=== PATIENT | female | born 1950 | race African-American/Black ===

== ENCOUNTER 2020-05-07 01:21 | Emergency (ER) | payer OTHER ==
[2020-05-07 03:44] LABS: Basophils % (Auto) 0.6 % (0.0-1.8); Eosinophils # (Auto) 0.1 K/mm3 (0.0-0.4); Eosinophils % (Auto) 1.7 % (0.0-4.3); Hematocrit 41.9 % (30.3-42.9); Lymphocytes # (Auto) 1.7 K/mm3 (1.2-5.4); Lymphocytes % (Auto) 28.2 % (13.4-35.0); Mean Corpuscular HGB Conc 33 % (30-34); Mean Corpuscular Volume 91 fl (79-97); Monocytes # (Auto) 0.5 K/mm3 (0.0-0.8); Monocytes % (Auto) 7.8 % (0.0-7.3); Platelet Count 265 K/mm3 (140-440); Red Blood Count 4.63 M/mm3 (3.65-5.03)
[2020-05-07 04:19] LABS: Alanine Aminotransferase 35 units/L (7-56); Albumin 4.2 g/dL (3.9-5); BUN/Creatinine Ratio 17; Blood Urea Nitrogen 10 mg/dL (7-17); Calcium 9.3 mg/dL (8.4-10.2); Hemolysis Index 10
[2020-05-07 04:45] LABS: Bacteria,Urine 1+ /HPF (Negative); Bilirubin,Urine NEG (Negative); Blood,Urine MOD (Negative); Color,Urine Yellow (Yellow); Mucus,Urine FEW /HPF; Protein,Urine <15 mg/dL mg/dL (Negative); Urobilinogen,Urine < 2.0 mg/dL (<2.0)
--- NOTE | 2020-05-07 06:23 | Emergency Department Report ---
ED General Adult HPI - General Chief complaint: Weakness Stated complaint: GENERAL WEAKNESS Time Seen by Provider: 05/07/20 06:09 Source: patient, family Mode of arrival: Ambulatory Limitations: Language Barrier - History of Present Illness Initial comments: This is a 69-year-old female that was brought to the emergency department with a complaint of feeling weak. She came with a family member that also has little ability to speak Mongolian. Further history is unknown. Medications are unknown. The patient's daughter was directed to bring the patient's current medications to the nurse. On my encounter the patient appears disinterested in cooperation. She is in no distress. Her behavior appears to be somewhat odd/inappropriate. There is no evidence of an acute neurological syndrome however. Further information will be obtained. She arrived in the emergency department more than 5 hours prior to my arrival. -: unknown - Related Data Home Medications Medication Instructions Recorded Confirmed Last Taken Lisinopril/Hydrochlorothiazide 1 tab PO DAILY 05/07/20 05/07/20 Unknown Pravastatin [Pravachol] 1 tab PO DAILY 05/07/20 05/07/20 Unknown Allergies Allergy/AdvReac Type Severity Reaction Status Date / Time No Known Allergies Allergy Unverified 05/07/20 01:32 ED Review of Systems ROS: Stated complaint: GENERAL WEAKNESS Other details as noted in HPI Comment: Unobtainable due to pts medical conditions ED Past Medical Hx - Past Medical History Previous Medical History?: Yes Hx Hypertension: Yes - Surgical History Past Surgical History?: No - Social History Smoking Status: Never Smoker Substance Use Type: None - Medications Home Medications: Home Medications Medication Instructions Recorded Confirmed Last Taken Type Lisinopril/Hydrochlorothiazide 1 tab PO DAILY 05/07/20 05/07/20 Unknown History Pravastatin [Pravachol] 1 tab PO DAILY 05/07/20 05/07/20 Unknown History ED Physical Exam - General Limitations: Language Barrier General appearance: alert, in no apparent distress - Head Head exam: Present: atraumatic, normocephalic - Eye Eye exam: Present: normal appearance, PERRL, EOMI. Absent: scleral icterus - ENT ENT exam: Present: mucous membranes moist - Neck Neck exam: Present: normal inspection. Absent: tenderness, meningismus - Respiratory Respiratory exam: Present: normal lung sounds bilaterally. Absent: respiratory distress - Cardiovascular Cardiovascular Exam: Present: regular rate, normal rhythm. Absent: systolic murmur, diastolic murmur, rubs, gallop - GI/Abdominal GI/Abdominal exam: Present: soft, normal bowel sounds. Absent: distended, tenderness, guarding, rebound, rigid - Extremities Exam Extremities exam: Present: normal inspection - Back Exam Back exam: Present: normal inspection - Neurological Exam Neurological exam: Present: alert, CN II-XII intact (As testable). Absent: motor sensory deficit - Psychiatric Psychiatric exam: Present: normal mood, flat affect - Skin Skin exam: Present: warm, dry, intact, normal color. Absent: rash ED Course Vital Signs 05/07/20 05/07/20 05/07/20 01:27 05:14 05:16 Temperature 98.6 F Pulse Rate 91 H 71 72 Respiratory 20 17 20 Rate Blood Pressure 150/95 138/67 O2 Sat by Pulse 96 100 98 Oximetry 05/07/20 05/07/20 05/07/20 05:46 06:00 06:16 Temperature Pulse Rate Respiratory 19 18 18 Rate Blood Pressure 138/67 140/77 140/77 O2 Sat by Pulse 100 99 100 Oximetry 05/07/20 05/07/20 06:34 06:53 Temperature Pulse Rate Respiratory 15 18 Rate Blood Pressure 140/77 O2 Sat by Pulse 98 99 Oximetry - Reevaluation(s) Reevaluation #1: Spoke with the patient's daughter. The patient is fully conversant with her daughter. She is fully ambulatory. She saw her doctor yesterday and was placed on lisinopril and Pravachol. She is appropriate for outpatient follow-up. There is no other specific complaint. The daughter tells me that she has been seen several times for the same symptom of generalized weakness. 05/07/20 09:05 ED Medical Decision Making - Lab Data Result diagrams: 05/07/20 03:23 05/07/20 03:23 Laboratory Results - last 24 hr 05/07/20 05/07/20 05/07/20 03:23 03:23 Unknown WBC 5.9 RBC 4.63 Hgb 14.0 Hct 41.9 MCV 91 MCH 30 MCHC 33 RDW 13.0 L Plt Count 265 Lymph % (Auto) 28.2 [place] % (Auto) 7.8 H Eos % (Auto) 1.7 Baso % (Auto) 0.6 Lymph # 1.7 [place] # 0.5 Eos # 0.1 Baso # 0.0 Seg Neutrophils % 61.7 Seg Neutrophils # 3.6 Sodium 141 Potassium 4.1 Chloride 100.4 Carbon Dioxide 25 Anion Gap 20 BUN 10 Creatinine 0.6 L Estimated GFR > 60 BUN/Creatinine Ratio 17 Glucose 149 H Calcium 9.3 Total Bilirubin 0.20 AST 27 ALT 35 Alkaline Phosphatase 82 Total Protein 7.8 Albumin 4.2 Albumin/Globulin Ratio 1.2 Urine Color Yellow Urine Turbidity Clear Urine pH 7.0 Ur Specific [place] 1.011 Urine Protein <15 mg/dl Urine Glucose (UA) Neg Urine Ketones Neg Urine Blood Mod Urine Nitrite Neg Ur Reducing Substances Not Reportable Urine Bilirubin Neg Urine Ictotest Not Reportable Urine Urobilinogen < 2.0 Ur Leukocyte Esterase Tr Urine WBC (Auto) 3.0 Urine RBC (Auto) 4.0 U Epithel Cells (Auto) 3.0 Urine Bacteria (Auto) 1+ Urine Mucus Few - EKG Data -: EKG Interpreted by Ma EKG shows normal: sinus rhythm, axis, intervals, QRS complexes, ST-T waves Rate: normal - EKG Data Interpretation: no acute changes - Radiology Data Radiology results: report reviewed (No acute process) Critical care attestation.: If time is entered above; I have spent that time in minutes in the direct care of this critically ill patient, excluding procedure time. ED Disposition Clinical Impression: Generalized weakness Disposition: DC-01 TO HOME OR SELFCARE Is pt being admited?: No Does the pt Need Aspirin: No Condition: Stable Instructions: Weakness (ED) Additional Instructions: Return to the emergency department any acute change or problem. Referrals: PRIMARY CARE [Primary Care Provider] - 3-5 Days Time of Disposition: 09:05
--- NOTE | 2020-05-07 07:09 | XRay Report ---
CHEST 1 VIEW INDICATION / CLINICAL INFORMATION: hypertension. COMPARISON: None available. FINDINGS: SUPPORT DEVICES: None. HEART / MEDIASTINUM: No significant abnormality. LUNGS / PLEURA: No significant pulmonary or pleural abnormality. No pneumothorax. ADDITIONAL FINDINGS: No significant additional findings. IMPRESSION: 1. No acute findings. Signer Name: Facundo Armstrong MD Signed: 05/07/2020 7:04 AM Workstation Name: [email or web address]
[2020-05-07 09:13] VITALS: BP 120/63
== END 2020-05-07 09:13 | disposition home or self-care (01) ==
LOC: ED 01:21
DX: R53.1 Weakness (principal); I10 Essential (primary) hypertension; F17.200 Nicotine dependence, unspecified, uncomplicated; Z79.899 Other long term (current) drug therapy
CPT/HCPCS: 36415; 71045; 80053; 81001; 85025; 93005

== ENCOUNTER 2020-08-09 10:43 | Outpatient (CLI) | payer MEDICARE ==
--- NOTE | 2020-08-09 11:48 | Cat Scan Report ---
CT ABDOMEN AND PELVIS WITHOUT CONTRAST INDICATION / CLINICAL INFORMATION: HEMATURIA. TECHNIQUE: Axial CT images were obtained through the abdomen and pelvis without IV contrast. Sagittal and cotton l reformatted images. All CT scans at this location are performed using CT dose reduction for ALARA b y means of automated exposure control. COMPARISON: 12/27/2016 FINDINGS: LOWER CHEST: No significant abnormality. LIVER: Mild hepatic steatosis is suspected. No focal liver lesion is detected on noncontrast CT. GALLBLADDER: No significant abnormality. BILE DUCTS: No significant abnormality. PANCREAS: No significant abnormality. SPLEEN: No significant abnormality. ADRENALS: No significant abnormality. RIGHT KIDNEY and URETER: There are 2 punctate calyceal stones in the superior and inferior right kidn ey. No focal renal lesion is identified. The right ureter is unremarkable. LEFT KIDNEY and URETER: There are a few punctate calyceal stones scattered throughout the left kidney . A 5 mm hemorrhagic cyst is noted near mid pole. The left ureter is unremarkable. STOMACH and SMALL BOWEL: No significant abnormality. COLON: No significant abnormality. APPENDIX: No significant abnormality. PERITONEUM: No free fluid. No free air. No fluid collection. LYMPH NODES: No significant adenopathy. AORTA and ARTERIES: No significant abnormality. IVC and VEINS: No significant abnormality. URINARY BLADDER: The bladder is mostly empty but demonstrates no gross abnormality. REPRODUCTIVE ORGANS: No significant abnormality. ADDITIONAL FINDINGS: None. SKELETAL SYSTEM: Mild osteopenia. Moderate thoracolumbar spondylosis. IMPRESSION: Punctate bilateral renal stones as described. No hydronephrosis. Tiny hemorrhagic cyst in the mid lef t kidney. Mild hepatic steatosis. Signer Name: Donato Oswald Jr, MD Signed: 08/09/2020 11:43 AM Workstation Name: [id number]
== END 2020-08-09 10:44 | disposition home or self-care (01) ==
LOC: CT 10:43
PROVIDERS: ATTEND Urology
DX: N20.0 Calculus of kidney (principal); N28.1 Cyst of kidney, acquired; K76.0 Fatty (change of) liver, not elsewhere classified; M85.88 Other specified disorders of bone density and structure, other site; M47.815 Spondylosis without myelopathy or radiculopathy, thoracolumbar region
CPT/HCPCS: 74176

== ENCOUNTER 2021-01-04 10:31 | Emergency (ER) | payer MEDICARE ==
--- NOTE | 2021-01-04 10:56 | Event Note ---
ED Screening Note Date of service: 01/04/21 Time: 10:55 ED Screening Note: Patient complains of right upper quadrant pain x yesterday Denies nausea/vomiting No chest pain or shortness of breath No history of abdominal surgeries This initial assessment/diagnostic orders/clinical plan/treatment(s) is/are subject to change based on patients health status, clinical progression and re- assessment by fellow clinical providers in the ED. Further treatment and workup at subsequent clinical providers discretion. Patient/guardian urged not to elope from the ED as their condition may be serious if not clinically assessed and managed. Initial orders include: Labs
[2021-01-04 11:45] LABS: Basophils % (Auto) 0.6 % (0.0-1.8); Eosinophils % (Auto) 0.8 % (0.0-4.3); Hematocrit 41.9 % (30.3-42.9); Hemoglobin 14.5 gm/dl (10.1-14.3); Lymphocytes # (Auto) 1.4 K/mm3 (1.2-5.4); Lymphocytes % (Auto) 22.4 % (13.4-35.0); Mean Corpuscular HGB Conc 35 % (30-34); Mean Corpuscular Volume 93 fl (79-97); Monocytes # (Auto) 0.3 K/mm3 (0.0-0.8); Monocytes % (Auto) 5.5 % (0.0-7.3); Platelet Count 314 K/mm3 (140-440); Red Blood Count 4.52 M/mm3 (3.65-5.03); Red Cell Distribution Width 12.8 % (13.2-15.2)
[2021-01-04 11:56] LABS: Alanine Aminotransferase 29 units/L (7-56); Blood Urea Nitrogen 22 mg/dL (7-17); Calcium 9.4 mg/dL (8.4-10.2); Hemolysis Index 10
[2021-01-04 12:01] LABS: BUN/Creatinine Ratio 37
--- NOTE | 2021-01-04 13:44 | Ultrasound Report ---
LIMITED RUQ ABDOMINAL ULTRASOUND INDICATION: pain. COMPARISON: CT abdomen pelvis without contrast 08/09/2020. FINDINGS: Pancreas: Visualized portions show no significant abnormality. Abdominal Aorta: No significant abnormality. IVC: No significant abnormality. Liver: The liver measures 15.1 cm in length. Moderate hepatic steatosis is evident. No focal liver l esion is detected. Normal hepatopedal blood flow in the main portal vein. Gallbladder: No significant abnormality. Bile ducts: No significant abnormality. Common bile duct measures 5.7 mm. Right kidney: No significant abnormality visualized. Free fluid: None. Additional Findings: None. IMPRESSION: Hepatic steatosis.. Signer Name: Donato Oswald Jr, MD Signed: 01/04/2021 1:39 PM Workstation Name: [id number]
[2021-01-04] MEDS ORDERED: SODIUM CHLORIDE 0.9% 1000 ML 1,000 ML IV ONE (14:11)
--- NOTE | 2021-01-04 14:15 | Emergency Department Report ---
ED Abdominal Pain HPI - General Chief Complaint: Abdominal Pain Stated Complaint: CRAMPS Time Seen by Provider: 01/04/21 10:54 Source: patient, family Mode of arrival: Ambulatory Limitations: Language Barrier, Other (Patient's history of dementia) - History of Present Illness Initial Comments: History obtained from daughter as she speaks Persian being worked up for the event. Daughter also did the translation. Patient is a 70-year-old female, she was brought in by daughter with complaints of abdominal cramping since last night. Patient points to her right upper quadrant. Patient states that she last had a bowel movement yesterday and she noticed bright red blood with her bowel movements. She denies any vomiting or nausea. She denies any diarrhea. She denies any hard stools or straining with her bowel movement. She reports no chest pain or shortness of breath. She denies any fever chills or any other symptoms at this time. She denies any history of abdominal surgeries. -: Last night Location: [facility] - Related Data Home Medications Medication Instructions Recorded Confirmed Last Taken Lisinopril/Hydrochlorothiazide 1 tab PO DAILY 05/07/20 05/07/20 Unknown Pravastatin [Pravachol] 1 tab PO DAILY 05/07/20 05/07/20 Unknown Previous Rx's Medication Instructions Recorded Last Taken Type Naproxen 500 mg PO Q12HR PRN #20 tablet 01/04/21 Unknown Rx Allergies Allergy/AdvReac Type Severity Reaction Status Date / Time No Known Allergies Allergy Unverified 05/07/20 01:32 ED Review of Systems ROS: Stated complaint: CRAMPS Other details as noted in HPI Comment: All other systems reviewed and negative Constitutional: denies: chills, diaphoresis, fever, malaise, weakness Eyes: denies: eye pain, eye discharge, vision change Respiratory: denies: cough, shortness of breath, SOB with exertion, SOB at rest, wheezing, other Cardiovascular: denies: chest pain, palpitations Gastrointestinal: abdominal pain, hematochezia Genitourinary: denies: urgency, dysuria, frequency, hematuria, discharge, abnormal menses Musculoskeletal: denies: back pain, joint swelling, arthralgia Skin: denies: rash, lesions Neurological: denies: headache, weakness, paresthesias Psychiatric: denies: anxiety, depression, auditory hallucinations, visual hallucinations, homicidal thoughts, suicidal thoughts Hematological/Lymphatic: denies: easy bleeding, easy bruising ED Past Medical Hx - Past Medical History Hx Hypertension: Yes - Social History Smoking Status: Never Smoker Substance Use Type: None - Medications Home Medications: Home Medications Medication Instructions Recorded Confirmed Last Taken Type Lisinopril/Hydrochlorothiazide 1 tab PO DAILY 05/07/20 05/07/20 Unknown History Pravastatin [Pravachol] 1 tab PO DAILY 05/07/20 05/07/20 Unknown History Naproxen 500 mg PO Q12HR PRN #20 tablet 01/04/21 Unknown Rx ED Physical Exam - General Limitations: No Limitations General appearance: alert, in no apparent distress - Head Head exam: Present: atraumatic, normocephalic, normal inspection - Eye Eye exam: Present: normal appearance - Neck Neck exam: Present: normal inspection, full ROM - Respiratory Respiratory exam: Present: normal lung sounds bilaterally. Absent: respiratory distress - Cardiovascular Cardiovascular Exam: Present: regular rate, normal rhythm, normal heart sounds - GI/Abdominal GI/Abdominal exam: Present: soft, tenderness (Mild tenderness in the right upper quadrant). Absent: distended, guarding, rebound - Rectal Rectal exam: Present: normal inspection, normal rectal tone, heme (-) stool. Absent: fecal impaction, hemorrhoids, mass, tenderness - Neurological Exam Neurological exam: Present: alert, oriented X3, CN II-XII intact, normal gait - Skin Skin exam: Present: intact ED Course Vital Signs 01/04/21 01/04/21 10:46 16:46 Temperature 98.2 F 98.4 F Pulse Rate 93 H 88 Respiratory 18 18 Rate Blood Pressure 110/60 Blood Pressure 110/64 [Right] O2 Sat by Pulse 97 98 Oximetry ED Medical Decision Making - Lab Data Result diagrams: 01/04/21 11:25 01/04/21 11:25 - Radiology Data Radiology results: report reviewed Patient: DAVID ALFARO MR#: [id number] 1944 : 1950 Acct:[id number] Age/Sex: 70 / F ADM Date: 01/04/21 Loc: ED Attending Dr: Ordering Physician: KAREN LUNDY Date of Service: 01/04/21 Procedure(s): US abdomen limited Accession Number(s): [id number] cc: KAREN DAVE RUQ ABDOMINAL ULTRASOUND INDICATION: pain. COMPARISON: CT abdomen pelvis without contrast 08/09/2020. FINDINGS: Pancreas: Visualized portions show no significant abnormality. Abdominal Aorta: No significant abnormality. IVC: No significant abnormality. Liver: The liver measures 15.1 cm in length. Moderate hepatic steatosis is evident. No focal liver lesion is detected. Normal hepatopedal blood flow in the main portal vein. Gallbladder: No significant abnormality. Bile ducts: No significant abnormality. Common bile duct measures 5.7 mm. Right kidney: No significant abnormality visualized. Free fluid: None. Additional Findings: None. IMPRESSION: Hepatic steatosis.. Signer Name: Donato Oswald Jr, MD Signed: 01/04/2021 1:39 PM Workstation Name: [id number] Transcribed By: TTR Dictated By: DONATO OSWALD JR, MD Electronically Authenticated By: DONATO OSWALD JR, MD Signed Date/Time: 01/04/21 1339 Patient: ADVID ALFARO MR#: [id number] 1944 : 1950 Acct:[id number] Age/Sex: 70 / F ADM Date: 01/04/21 Loc: ED Attending Dr: Ordering Physician: ANGELES MORAN Date of Service: 01/04/21 Procedure(s): CT abdomen pelvis w con Accession Number(s): [id number] cc: ANGELES MORAN CT ABDOMEN AND PELVIS WITH CONTRAST HISTORY: Right upper quadrant abdominal pain COMPARISON: Prior CT on 08/09/2020 TECHNIQUE: Routine abdominal and pelvic CT exam performed following intravenous contrast administration.. All CT scans at this location are performed using CT dose reduction for ALARA by means of automated exposure control. FINDINGS: CT ABDOMEN: Lung Bases: No significant abnormality. Liver: Decreased attenuation consistent with hepatic steatosis. Biliary: No significant abnormality. Spleen: No significant abnormality. Unenlarged. Pancreas: No significant abnormality. Adrenals: No significant abnormality. Kidneys: No acute findings. One centimeters simple cyst in the lateral right kidney. Lymphatics: No lymphadenopathy. Vasculature: Atherosclerotic but nonaneurysmal abdominal aorta. Bowel/Peritoneum: No significant abnormality. No free air. No free fluid. Normal appendix. CT PELVIC: : No significant abnormality. Lymphatics: No lymphadenopathy. Osseous Structures: No aggressive appearing osseous lesions. Additional Findings: None IMPRESSION: 1. No acute findings or adverse change from prior exams. 2. Hepatic steatosis. Signer Name: Jorge Zamora MD Signed: 01/04/2021 3:21 PM Workstation Name: [id number] Transcribed By: GALLO Dictated By: Jorge Zamora MD Electronically Authenticated By: Jorge Zamora MD Signed Date/Time: 01/04/21 152 DD/ TD/TT: - Medical Decision Making Patient currently resting comfortably. She is not in any acute distress. She is well appearing and not toxic and appears hydrated. She has been ambulatory in ED with nl gait. Labs are unremarkable. CT abdomen pelvis as well ultrasound shows nothing acute. Her Hemoccult was negative. Her history, exam, diagnostic testing and current condition do not suggest acute appendicitis, bowel obstruction, acute cholecystitis, bowel perforation, major GI bleed, severe diverticulitis, abdominal aortic aneurysm, mesenteric ischemia, volvulus, sepsis or other significant pathology to warrant further testing, continued ED treatment, admission or surgical evaluation at this point. Discussed CT results, ultrasound results and lab results with daughter. Exact cause of patients symptoms unclear at this time. Recommend close follow-up with patient's primary care doctor in the next couple days. Patient stable at time of d/c. Critical care attestation.: If time is entered above; I have spent that time in minutes in the direct care of this critically ill patient, excluding procedure time. ED Disposition Clinical Impression: RUQ abdominal pain Disposition: DC-01 TO HOME OR SELFCARE Is pt being admited?: No Does the pt Need Aspirin: No Condition: Stable Instructions: Abdominal Pain, Adult, [id number], Abdominal Pain (ED) Additional Instructions: Take the naproxen as prescribed for pain. I recommend close follow-up with patient's primary care doctor this week. Return to the ER if any symptoms changes or worsens in any way Prescriptions: Naproxen 500 mg PO Q12HR PRN #20 tablet PRN Reason: pain Referrals: PRIMARY CARE, [Primary Care Provider] - 3-5 Days HARINI GROVER MD [Staff Physician] - 3-5 Days Time of Disposition: 15:34
[2021-01-04 14:56] LABS: Bilirubin,Urine NEG (Negative); Blood,Urine SM (Negative); Color,Urine Yellow (Yellow); Mucus,Urine 2+ /HPF; Protein,Urine <15 mg/dL mg/dL (Negative); Urobilinogen,Urine < 2.0 mg/dL (<2.0)
--- NOTE | 2021-01-04 15:26 | Cat Scan Report ---
CT ABDOMEN AND PELVIS WITH CONTRAST HISTORY: Right upper quadrant abdominal pain COMPARISON: Prior CT on 08/09/2020 TECHNIQUE: Routine abdominal and pelvic CT exam performed following intravenous contrast administrat ion.. All CT scans at this location are performed using CT dose reduction for ALARA by means of autom ated exposure control. FINDINGS: CT ABDOMEN: Lung Bases: No significant abnormality. Liver: Decreased attenuation consistent with hepatic steatosis. Biliary: No significant abnormality. Spleen: No significant abnormality. Unenlarged. Pancreas: No significant abnormality. Adrenals: No significant abnormality. Kidneys: No acute findings. One centimeters simple cyst in the lateral right kidney. Lymphatics: No lymphadenopathy. Vasculature: Atherosclerotic but nonaneurysmal abdominal aorta. Bowel/Peritoneum: No significant abnormality. No free air. No free fluid. Normal appendix. CT PELVIC: : No significant abnormality. Lymphatics: No lymphadenopathy. Osseous Structures: No aggressive appearing osseous lesions. Additional Findings: None IMPRESSION: 1. No acute findings or adverse change from prior exams. 2. Hepatic steatosis. Signer Name: Jorge Zamora MD Signed: 01/04/2021 3:21 PM Workstation Name: [id number]
[2021-01-04 16:49] VITALS: BP 110/64
== END 2021-01-04 16:46 | disposition home or self-care (01) ==
LOC: ED 10:31
DX: R10.11 Right upper quadrant pain (principal); I10 Essential (primary) hypertension; Z79.899 Other long term (current) drug therapy
CPT/HCPCS: 36415; 74177; 76705; 80053; 81001; 82271; 83690; 85025; 87086; 99284; Q9967

== ENCOUNTER 2022-01-02 10:56 | Emergency (ER) | payer MEDICARE ==
[2022-01-02 11:18] VITALS: BP 145/68
[2022-01-02 12:48] LABS: Basophils % (Auto) 0.4 % (0.0-1.8); Eosinophils # (Auto) 0.1 K/mm3 (0.0-0.4); Eosinophils % (Auto) 0.7 % (0.0-4.3); Hematocrit 40.5 % (30.3-42.9); Hemoglobin 13.3 gm/dl (10.1-14.3); Lymphocytes # (Auto) 1.4 K/mm3 (1.2-5.4); Lymphocytes % (Auto) 18.7 % (13.4-35.0); Mean Corpuscular HGB Conc 33 % (30-34); Mean Corpuscular Volume 90 fl (79-97); Monocytes # (Auto) 0.4 K/mm3 (0.0-0.8); Monocytes % (Auto) 5.5 % (0.0-7.3); Platelet Count 319 K/mm3 (140-440); Red Cell Distribution Width 13.2 % (13.2-15.2)
[2022-01-02 13:02] LABS: Blood Urea Nitrogen 11 mg/dL (7-17); Calcium 9.6 mg/dL (8.4-10.2); Hemolysis Index 4
[2022-01-02 13:20] LABS: BUN/Creatinine Ratio 28
[2022-01-02 13:34] LABS: Bacteria,Urine 1+ /HPF (Negative); Bilirubin,Urine NEG (Negative); Blood,Urine MOD (Negative); Color,Urine Straw (Yellow); Protein,Urine <15 mg/dL mg/dL (Negative); Urobilinogen,Urine < 2.0 mg/dL (<2.0)
[2022-01-02 13:40] LABS: Amphetamine Screen,Urine Negative; Benzodiazepines Screen,Urine Negative; Cannabinoid Screen,Urine Negative; Cocaine Screen,Urine Negative; Methadone Screen,Urine Negative; Opiate Screen,Urine Negative
--- NOTE | 2022-01-02 13:54 | Emergency Department Report ---
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 pt had dementia for couple of years but lately got worse and started going to neighbor houses -: Gradual Associated Symptoms: denies: denies other symptoms, confusion, chest pain, headaches, loss of appetite, malaise, shortness of breath, syncope, weakness - Related Data Home Medications Medication Instructions Recorded Confirmed Last Taken Lisinopril/Hydrochlorothiazide 1 tab PO DAILY 05/07/20 05/07/20 Unknown Pravastatin [Pravachol] 1 tab PO DAILY 05/07/20 05/07/20 Unknown Previous Rx's Medication Instructions Recorded Last Taken Type Naproxen 500 mg PO Q12HR PRN #20 tablet 01/04/21 Unknown Rx Allergies Allergy/AdvReac Type Severity Reaction Status Date / Time No Known Allergies Allergy Unverified 05/07/20 01:32 ED Review of Systems ROS: Stated complaint: CONFUSED Other details as noted in HPI Comment: Unobtainable due to pts medical conditions ED Past Medical Hx - Past Medical History Previous Medical History?: Yes Hx Hypertension: Yes Additional medical history: dementia, Alzheimer's - Surgical History Past Surgical History?: No - Social History Smoking Status: Never Smoker Substance Use Type: None - Medications Home Medications: Home Medications Medication Instructions Recorded Confirmed Last Taken Type Lisinopril/Hydrochlorothiazide 1 tab PO DAILY 05/07/20 05/07/20 Unknown History Pravastatin [Pravachol] 1 tab PO DAILY 05/07/20 05/07/20 Unknown History Naproxen 500 mg PO Q12HR PRN #20 tablet 01/04/21 Unknown Rx ED Physical Exam - General Limitations: Language Barrier General appearance: in no apparent distress - Head Head exam: Present: atraumatic, normocephalic - Eye Eye exam: Present: normal appearance - ENT ENT exam: Present: mucous membranes moist - Neck Neck exam: Present: normal inspection - Respiratory Respiratory exam: Present: normal lung sounds bilaterally. Absent: respiratory distress - Cardiovascular Cardiovascular Exam: Present: regular rate, normal rhythm. Absent: systolic murmur, diastolic murmur, rubs, gallop - GI/Abdominal GI/Abdominal exam: Present: soft, normal bowel sounds - Extremities Exam Extremities exam: Present: normal inspection - Back Exam Back exam: Present: normal inspection - Psychiatric Psychiatric exam: Present: normal affect, normal mood - Skin Skin exam: Present: warm, dry, intact, normal color. Absent: rash ED Course Vital Signs 01/02/22 01/02/22 11:12 12:38 Temperature 98.3 F Pulse Rate 98 H Respiratory 16 16 Rate Blood Pressure 145/68 [Left] O2 Sat by Pulse 93 97 Oximetry ED Medical Decision Making - Lab Data Result diagrams: 01/02/22 12:14 01/02/22 12:14 - Medical Decision Making work up neg , was planing to get psych assessment for [facility] but caregiver decied to to leave AMA Critical care attestation.: If time is entered above; I have spent that time in minutes in the direct care of this critically ill patient, excluding procedure time. ED Disposition Clinical Impression: Dementia Disposition: 07 LEFT AGAINST MEDICAL ADVICE Is pt being admited?: No Does the pt Need Aspirin: No Condition: Stable Instructions: Dementia Caregiver Guide Referrals: PRIMARY CARE, [Primary Care Provider] - 3-5 Days Forms: AMA Form
== END 2022-01-02 13:55 | disposition left against medical advice (07) ==
LOC: ED 10:56
DX: G30.9 Alzheimer's disease, unspecified (principal); F02.80 Dementia in other diseases classified elsewhere, unspecified severity, without behavioral disturbance, psychotic disturbance, mood disturbance, and anxiety; I10 Essential (primary) hypertension; Z79.899 Other long term (current) drug therapy
CPT/HCPCS: 36415; 80048; 80307; 80320; 81001; 85025; 99283; G0480